=== PATIENT | female | born 1955 | race Caucasian/White ===

== ENCOUNTER 2018-12-03 16:47 | Observation (INO) ==
[2018-12-03] MEDS ORDERED: Isovue-370 500 ML BOTTLE IVP ONE (17:30)
[2018-12-03] MEDS ORDERED: Ondansetron 4 MG/2 ML VIAL IVP ONE (17:30)
[2018-12-03] MEDS ORDERED: Metoclopramide 10 MG/2 ML VIAL IVP ONE (17:36)
--- NOTE | 2018-12-03 17:39 | Emergency Department Note ---
Disposition Clinical Impression: Facial droop, Arm weakness Disposition: Admitted As Inpatient Condition: Fair Referrals: Sarbjit Armenta MD [Primary Care Provider] - Forms: ED Satisfaction Letter Time of Disposition: 19:56 Neuro HPI - General Chief Complaint: ED Neuro Symptoms/Deficit Stated Complaint: Neuro Symptoms since 11/30 Time Seen by Provider: 12/03/18 17:18 Source: patient Mode of arrival: ambulatory Limitations: no limitations Nursing Notes Reviewed: Yes Vital Signs Reviewed: Yes - History of Present Illness HPI Narrative: 63 old female with history of heart failure, diabetes, hypertension, chronic kidney disease presents for evaluation of nausea vomiting headache as well as facial droop. Patient states symptom onsets are with a headache that occurred approximately week ago. Notes to be left-sided. States it does radiate around to the front. Patient states she does have a history of cervical stenosis. Patient feels that the headache is likely secondary to her stenosis. Reports some nausea no vomiting. Patient also notes some tingling and weakness in her left arm. She noted facial droop that occurred last Monday. Patient denies any chest pain. Patient denies any abdominal pain. No fevers. Patient denies any vision changes. States the headache is worse with light and sounds. - Related Data Home Medications: Home Medications Medication Instructions Recorded Confirmed Atenolol [Tenormin] 25 mg PO DAILY 08/04/15 08/07/17 Atorvastatin [Lipitor] 40 mg PO DAILY 08/04/15 08/07/17 Furosemide [Lasix] 40 mg PO DAILY 08/04/15 08/07/17 Insulin DETEMIR [Levemir] 80 unit SQ BID 08/04/15 08/07/17 Isosorbide MONOnitrate (24 HR) 60 mg PO DAILY 08/04/15 08/07/17 [Imdur] Linagliptin [Tradjenta] 5 mg PO DAILY 08/04/15 08/07/17 Losartan [Cozaar] 100 mg PO DAILY 08/04/15 08/07/17 Metolazone [Zaroxolyn] 5 mg PO DAILY 08/04/15 08/07/17 Spironolactone [Aldactone] 100 mg PO DAILY 08/04/15 08/07/17 Tiotropium [Spiriva] 1 cap IH 0700 08/04/15 08/07/17 Insulin ASPART [NovoLOG] 20 unit SQ TIDWM 08/03/16 08/07/17 Albuterol Neb [Proventil Neb] 2.5 mg IH TID PRN 04/06/17 08/07/17 Albuterol Sulfate [Albuterol 2 puff IH Q6HR PRN 04/06/17 08/07/17 Inhaler] Allopurinol [Zyloprim] 300 mg PO DAILY 04/06/17 08/07/17 Gabapentin [Neurontin] 800 mg PO TID 04/06/17 08/07/17 Magnesium Oxide [Magnesium] 400 mg PO DAILY 04/06/17 08/07/17 [place]-3/Dha/Epa/Fish Oil [Fish Oil 1,000 mg PO DAILY 04/06/17 08/07/17 1,000 mg Softgel] Previous Rx's Medication Instructions Recorded Ascorbic Acid [Vitamin C] 1 tab PO DAILY #30 tablet 08/08/17 Cholecalciferol (Vitamin D3) 1 cap PO QWEEK #16 capsule 08/08/17 [Vitamin D] Ferrous Sulfate [Iron] 1 tab PO DAILY #30 tablet 08/08/17 Folic Acid 1 tab PO DAILY #30 tablet 08/08/17 Allergies/Adverse Reactions: Allergies Allergy/AdvReac Type Severity Reaction Status Date / Time aspirin Allergy Swelling Verified 12/03/18 17:06 of Lip/Tongue/Throat ibuprofen Allergy Swelling Verified 12/03/18 17:06 of Lip/Tongue/Throat naproxen [From Naprosyn] Allergy Swelling Verified 12/03/18 17:06 of Lip/Tongue/Throat All systems ED: reviewed and negative except as stated. Constitutional: Denies: fever Cardiovascular: Denies: chest pain Respiratory: Denies: cough Gastrointestinal: Reports: nausea, vomiting. Denies: abdominal pain Neurological: Reports: headache, weakness Past Medical History - Past Medical History Source: patient Medical history: Reports: arthritis, CHF, COPD, diabetes, hyperlipidemia, hypertension, renal disease, other Surgical history: Reports: non-contributory, other Psychiatric history: Reports: anxiety, depression - Social History Smoking Status: Former smoker Smokeless Tobacco Status: No Alcohol use: Reports: none Drug use: Reports: none Physical Exam - General Limitations: no limitations General appearance: alert, in no apparent distress - Head Head exam: atraumatic, normocephalic, normal inspection - Eye Eye exam: Present: normal appearance, PERRL, EOMI - ENT ENT exam: normal exam, normal oropharynx, other (Left-sided facial droop without forehead sparing) - Neck Neck exam: Present: normal inspection - Chest Chest inspection: Present: normal inspection - Respiratory Respiratory exam: Present: normal lung sounds bilaterally. Absent: respiratory distress - Cardiovascular Cardiovascular exam: Present: regular rate, normal rhythm. Absent: systolic murmur - Abdominal Exam Abdominal exam: Present: soft, Non-Tender - Extremities Exam Extremities exam: Present: normal inspection. Absent: pedal edema - Back Exam Back exam: Present: normal inspection - Neurological Exam Neurological exam: Present: alert, oriented X3 - Expanded Neurological Exam Patient oriented to: Present: person, place, time Speech: Present: fluid speech Cranial nerves: EOM function (II, III, IV, ): Normal, facial sensation (V): Normal, facial palsy (VII): Abnormal Left, spinal accessory function (XI): Normal, tongue deviation (XII): Normal Cerebellar function: finger to nose: Normal Motor strength - LUE: 4/5 Motor strength - RUE: 5/5 Motor strength - LLE: 4/5 Motor strength - RLE: 5/5 Coma Scale Eye Opening: Spontaneous Coma Scale Motor Response: Obeys Commands Coma Scale Verbal Response: Oriented Coma Scale Total: 15 Course - Reevaluation(s) Reevaluation #1: Patient seen and examined. Patient currently exam is unchanged. Patient's updated on plan of care. Patient will be admitted for TIA versus CVA workup. Time: 19:55 Vital Signs Temperature 98.3 F 12/03/18 17:06 Pulse Rate 77 12/03/18 17:06 Respiratory Rate 18 12/03/18 17:06 Blood Pressure 121/70 12/03/18 17:06 O2 Sat by Pulse Oximetry 93 12/03/18 17:06 Temperature 98.3 F 12/03/18 17:06 Pulse Rate 77 12/03/18 17:06 Respiratory Rate 18 12/03/18 17:06 Blood Pressure 121/70 12/03/18 17:06 O2 Sat by Pulse Oximetry 93 12/03/18 17:06 Oxygen Delivery Oxygen Delivery Room Air Neuro Symptoms/Deficit - MDM Narrative Medical decision making narrative: Patient presented initially for neuro symptoms. Patient is not a stroke alert given her last known well time of onset. States that he was having a headache this started a week ago. Patient also was having left sided facial droop that she noted over the past couple days. Patient did not seek medical care at that time. On exam the patient did initially have symptoms consistent more with [place]'s however the patient does have noticeable left sided extremity weakness. No history of CVA in the past. Patient does have several risk factors for CVA. Patient had a cardio pulmonary screening evaluation given her history. Chest x- ray unremarkable. Patient does have AK based on prior lab values. At this point the patient will be admitted for CVA workup. CT angiogram of the head and neck showed no acute abnormalities. Patient was allergic to aspirin so the patient did receive Plavix. - Lab Data Lab results reviewed: Yes I reviewed the patient's lab results. Result diagrams: 12/03/18 17:52 12/03/18 17:52 Lab Results 12/03/18 12/03/18 12/03/18 Range/Units 17:52 17:52 17:52 WBC 11.6 H (4.3-11.1) K/mcL RBC 4.94 (3.82-4.97) M/mcL Hgb 12.4 (11.5-15.4) g/dL Hct 40.1 (35.3-44.9) % MCV 81.2 L (83.0-100.0) fL MCH 25.1 L (28.0-33.3) pg MCHC 30.9 L (31.6-35.5) g/dL RDW 16.3 H (11.5-14.5) % Plt Count 258 (140-400) K/mcL MPV 9.6 (9.4-12.4) fL PT 11.9 (9.4-12.1) Seconds INR 1.1 Sodium 139 (136-145) mEq/L Potassium 3.8 (3.5-5.1) mEq/L Chloride 102 (98-107) mEq/L Carbon Dioxide 28 (23-29) mEq/L BUN 29 H (8-23) mg/dL Creatinine 1.38 H (0.60-1.20) mg/dL Est GFR ( Amer) 47 L (> 60) Est GFR (Non-Af Amer) 38 L (> 60) BUN/Creatinine Ratio 21 (6-26) Glucose 228 H (70-105) mg/dL Calculated Osmolality 301 H (280-300) Calcium 9.0 (8.6-10.3) mg/dL Troponin I < 0.03 (< 0.04) ng/mL - Radiology Data Radiology results reviewed: Yes I reviewed the patient's radiology results. Head CTA 12/03/18 17:30 IMPRESSION: No CT evidence of an acute infarct. No flow limiting stenosis or branch occlusion detected within the head or neck. Left PCOM infundibulum versus aneurysm. D/ / Saulo Hemphill MD / Saulo Hemphill MD Interpreting Provider: Saulo Hemphill MD Neck CTA 12/03/18 17:32 IMPRESSION: No CT evidence of an acute infarct. No flow limiting stenosis or branch occlusion detected within the head or neck. Left PCOM infundibulum versus aneurysm. D/ / Saulo Hemphill MD / Saulo Hemphill MD Interpreting Provider: Saulo Hemphill MD Chest X-Ray 12/03/18 17:34 IMPRESSION: No evidence of acute process in the chest. D/ / Steven Cruz / Steven Cruz Interpreting Provider: Steven Cruz - EKG Data EKG attestation: Yes I reviewed and interpreted this EKG. EKG shows normal: sinus rhythm Rate: normal Rhythm: NSR [place]/QRS: normal T wave inversions noted in: v1 Interpretation: no acute changes, nonspecific ST-T wave changes NIH Stroke Scale - Level of Consciousness LOC: Alert - LOC Questions LOC Questions: Answers both correctly - LOC Commands LOC Commands: Performs both correctly - Best Gaze Best Gaze: Normal - Visual Visual: No visual loss - Facial Palsy Facial Palsy: Complete absence of movement in upper and lower face - Motor Arms Motor Arm-Left: No drift for 10 seconds Motor Arm-Right: No drift for 10 seconds - Motor Legs Motor Leg-Left: No drift for 5 seconds Motor Leg-Right: No drift for 5 seconds - Limb Ataxia Limb Ataxia: Absent of affected limb too weak to perform exam - Sensory Sensory: Normal - Best Language Best Language: No aphasia - Dysarthria Dysarthria: Normal - Extinction and Inattention Extinction and Inattention: Normal - NIHSS Total Score NIHSS Total Score: 3 TPA Checklist - LKW: 3-4.5 hrs Add. Warnings/Precautions Patient/family understanding: The patient/family members have been counseled and understood the risk, benefit, and alternatives of treatment. Mounika - Mounika Situation: Demographics Background: Presenting Complaint Assessment: Vital Signs, Course and respsone to treatment, Patient/Family Expectation Recommendation: Barrier(s) to disposition, Recommendation based on pending studies, treatments, or consults Mounika Report Given to: Dr. Jayden Ribera Repor Time: 20:10
[2018-12-03 18:09] LABS: INR 1.1; Prothrombin Time 11.9 Seconds (9.4-12.1)
[2018-12-03 18:17] LABS: Hematocrit 40.1 % (35.3-44.9); Hemoglobin 12.4 g/dL (11.5-15.4); Mean Corpuscular HGB Conc 30.9 g/dL (31.6-35.5); Mean Corpuscular Hemoglobin 25.1 pg (28.0-33.3); Mean Corpuscular Volume 81.2 fL (83.0-100.0); Mean Platelet Volume 9.6 fL (9.4-12.4); Platelet Count 258 K/mcL (140-400); Red Blood Count 4.94 M/mcL (3.82-4.97); Red Cell Distribution Width 16.3 % (11.5-14.5)
[2018-12-03 19:16] LABS: BUN/Creatinine Ratio 21 (6-26); Blood Urea Nitrogen 29 mg/dL (8-23); Carbon Dioxide 28 mEq/L (23-29); Chloride 102 mEq/L (98-107); Glucose 228 mg/dL (70-105); Osmolality,Calculated 301 (280-300); Potassium 3.8 mEq/L (3.5-5.1); Sodium 139 mEq/L (136-145); eGFR For Non-African Americans 38 (> 60)
[2018-12-03 19:18] LABS: Troponin I < 0.03 ng/mL (< 0.04)
--- NOTE | 2018-12-03 20:05 | Emergency Department Note ---
Disposition Clinical Impression: Facial droop, Arm weakness Disposition: Admitted As Inpatient Condition: Fair Referrals: Sarbjit Armenta MD [Primary Care Provider] - Forms: ED Satisfaction Letter General Adult HPI - General Chief complaint: ED Neuro Symptoms/Deficit Stated complaint: Neuro Symptoms since 11/30 Time Seen by Provider: 12/03/18 17:18 Source: patient Mode of arrival: ambulatory Limitations: no limitations - History of Present Illness Pain Scale: 9 - Related Data Home Medications Medication Instructions Recorded Confirmed Atenolol [Tenormin] 25 mg PO DAILY 08/04/15 08/07/17 Atorvastatin [Lipitor] 40 mg PO DAILY 08/04/15 08/07/17 Furosemide [Lasix] 40 mg PO DAILY 08/04/15 08/07/17 Insulin DETEMIR [Levemir] 80 unit SQ BID 08/04/15 08/07/17 Isosorbide MONOnitrate (24 HR) 60 mg PO DAILY 08/04/15 08/07/17 [Imdur] Linagliptin [Tradjenta] 5 mg PO DAILY 08/04/15 08/07/17 Losartan [Cozaar] 100 mg PO DAILY 08/04/15 08/07/17 Metolazone [Zaroxolyn] 5 mg PO DAILY 08/04/15 08/07/17 Spironolactone [Aldactone] 100 mg PO DAILY 08/04/15 08/07/17 Tiotropium [Spiriva] 1 cap IH 0700 08/04/15 08/07/17 Insulin ASPART [NovoLOG] 20 unit SQ TIDWM 08/03/16 08/07/17 Albuterol Neb [Proventil Neb] 2.5 mg IH TID PRN 04/06/17 08/07/17 Albuterol Sulfate [Albuterol 2 puff IH Q6HR PRN 04/06/17 08/07/17 Inhaler] Allopurinol [Zyloprim] 300 mg PO DAILY 04/06/17 08/07/17 Gabapentin [Neurontin] 800 mg PO TID 04/06/17 08/07/17 Magnesium Oxide [Magnesium] 400 mg PO DAILY 04/06/17 08/07/17 [place]-3/Dha/Epa/Fish Oil [Fish Oil 1,000 mg PO DAILY 04/06/17 08/07/17 1,000 mg Softgel] Previous Rx's Medication Instructions Recorded Ascorbic Acid [Vitamin C] 1 tab PO DAILY #30 tablet 08/08/17 Cholecalciferol (Vitamin D3) 1 cap PO QWEEK #16 capsule 08/08/17 [Vitamin D] Ferrous Sulfate [Iron] 1 tab PO DAILY #30 tablet 08/08/17 Folic Acid 1 tab PO DAILY #30 tablet 08/08/17 Allergies Allergy/AdvReac Type Severity Reaction Status Date / Time aspirin Allergy Swelling Verified 12/03/18 17:06 of Lip/Tongue/Throat ibuprofen Allergy Swelling Verified 12/03/18 17:06 of Lip/Tongue/Throat naproxen [From Naprosyn] Allergy Swelling Verified 12/03/18 17:06 of Lip/Tongue/Throat Constitutional: Denies: fever Cardiovascular: Denies: chest pain Respiratory: Denies: cough Gastrointestinal: Reports: nausea, vomiting. Denies: abdominal pain Neurological: Reports: headache, weakness Past Medical History - Past Medical History Medical history: Reports: arthritis, CHF, COPD, diabetes, hyperlipidemia, hypertension, renal disease, other Surgical history: Reports: non-contributory, other Psychiatric history: Reports: anxiety, depression - Social History Smoking Status: Former smoker Smokeless Tobacco Status: No Alcohol use: Reports: none Drug use: Reports: none Physical Exam - General Limitations: no limitations General appearance: alert, in no apparent distress Course Vital Signs Temperature 98.3 F 12/03/18 17:06 Pulse Rate 77 12/03/18 17:06 Respiratory Rate 18 12/03/18 17:06 Blood Pressure 121/70 12/03/18 17:06 O2 Sat by Pulse Oximetry 93 12/03/18 17:06 Temperature 98.3 F 12/03/18 17:06 Pulse Rate 77 12/03/18 17:06 Respiratory Rate 18 12/03/18 17:06 Blood Pressure 121/70 12/03/18 17:06 O2 Sat by Pulse Oximetry 93 12/03/18 17:06 Oxygen Delivery Oxygen Delivery Room Air Medical Decision Making - Lab Data Result diagrams: 12/03/18 17:52 12/03/18 17:52 Lab Results 12/03/18 12/03/18 12/03/18 Range/Units 17:52 17:52 17:52 WBC 11.6 H (4.3-11.1) K/mcL RBC 4.94 (3.82-4.97) M/mcL Hgb 12.4 (11.5-15.4) g/dL Hct 40.1 (35.3-44.9) % MCV 81.2 L (83.0-100.0) fL MCH 25.1 L (28.0-33.3) pg MCHC 30.9 L (31.6-35.5) g/dL RDW 16.3 H (11.5-14.5) % Plt Count 258 (140-400) K/mcL MPV 9.6 (9.4-12.4) fL PT 11.9 (9.4-12.1) Seconds INR 1.1 Sodium 139 (136-145) mEq/L Potassium 3.8 (3.5-5.1) mEq/L Chloride 102 (98-107) mEq/L Carbon Dioxide 28 (23-29) mEq/L BUN 29 H (8-23) mg/dL Creatinine 1.38 H (0.60-1.20) mg/dL Est GFR ( Amer) 47 L (> 60) Est GFR (Non-Af Amer) 38 L (> 60) BUN/Creatinine Ratio 21 (6-26) Glucose 228 H (70-105) mg/dL Calculated Osmolality 301 H (280-300) Calcium 9.0 (8.6-10.3) mg/dL Troponin I < 0.03 (< 0.04) ng/mL Attestation Statement - Attestation Attestation: I examined this patient and my medical decision-making was reviewed with the Resident Physician. I agree with the documented findings, disposition and treatment plan as described except to the extent set forth below. 63 year old female presents to the ED with complaints of left sided facial weakness and asociated with left upper and lower extremity. PAtinet otherwise shows decreased cotton presser strength in upper extrimity and decreased strength against gravity for lower extremity which has been getting incresing wores since 11/30. 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 Patient CTA head and neck are otherwise neg at this time. We candy admit to medicine for CVA workup.
[2018-12-03] MEDS ORDERED: Albuterol 2.5 MG/3 ML NEBULIZER IH PRN (21:19)
[2018-12-03] MEDS ORDERED: Ondansetron 4 MG/2 ML VIAL IVP PRN (21:20)
[2018-12-03] MEDS ORDERED: Dextrose Gel 15 GM/37.5 ML TUBE PO PRN ×2 (21:24)
[2018-12-03] MEDS ORDERED: *HR* Dextrose 50 % in Water (Syg) 50 ML SYRINGE IVP PRN (21:24)
[2018-12-03] MEDS: Insulin LISPRO 300 UNITS/3 ML VIAL SQ SCH (22:53)
[2018-12-03] MEDS: Gabapentin 400 MG CAPSULE PO SCH (23:07)
[2018-12-03] MEDS: *HR* Heparin 5,000 UNIT/ML VIAL SQ SCH (23:07)
[2018-12-03] MEDS: Ringers Solution, Lactated 1,000 ML IVC SCH (23:07)
--- NOTE | 2018-12-04 00:19 | Internal Med History&Physical ---
Date of Encounter: 12/03/18 Time of Encounter: 19:00 Internal Medicine - H&P: HPI Chief complaint: headache Admitted From: Home Plans for Post Hospital Care: Home History of present illness: Patient seen on 12/03/2018 Cortney Cassidy is a 63 year old obese woman who reports having hypertension, diabetes, heart failure and chronic kidney disease who presents with the complaint of headache and left facial drooping that has been present since last . She says she initially thought it had to do with her cervical radiculopathy/myelopathy however given its persistence and insistence by family members, she decided to come in for evaluation. She was seen clinically and hemodynamically stable and her clinical examination appeared more consistent with [place] palsy however she was also seen to have left upper and lower extremity weakness thereby giving the concern for CVA. She had head and neck CTA done with the only abnormality detected being a left PCOM infundibulum versus aneurysm. She is admitted for further evaluation. Vitals: Reviewed General: Obese white woman sitting up in bed in NAD Skin: Warm and dry. HEENT: No skin creasing on left forehead. Incomplete closure of left eyelid. No palpebral elevation on the left. Neck: No lymphadenopathy. No JVD. No carotid bruits. No palpable thyroid. Chest: Normal thoracic expansion. Normal breath sounds. Clear to auscultation. Heart: Normal S1 & S2; rhythmic. No rubs or murmurs. Abdomen: Non-distended, soft and non-tender to palpation. No peritoneal reaction. Extremities: No clubbing, cyanosis or edema. No calf tenderness. Normal distal pulses. Neurological: Awake, alert and oriented to person, place and time. 4/5 left arm/leg weakness. 5/5 right sided strength. Psych: Affect appropriate. 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 The confounding factor is the presence of concomitant left sided weakness. If this is indeed [place] palsy, she has been symptomatic for the past 5 to 6 days and at this point is out of the window of any benefit of steroids and/or antiviral therapy. Left sided weakness: She does not appear to have prior knowledge of having weakness on this side. She does relate having been evaluated a year ago for a stroke and being placed on clopidogrel given her penicillin allergy. This could possibly be the cause of her left sided weakness and now just being seen as a compounding factor. In any case for the sake of certainty, will get a brain MRI for further evaluation of this and also the anomaly seen on CT. Will continue daily antiplatelet therapy. Neurology consultation requested. Diabetes: Check A1C and lipid profile. Place on insulin sliding scale. COPD: On daily tiotropium and albuterol prn. EMA: Will provide fluid resuscitation and recheck BMP. Past Med Surg Social Fam HX - Past Medical History Medical history: arthritis, CHF, COPD, diabetes, hyperlipidemia, hypertension, renal disease, other Additional medical history: Gout. Renal Failure Stage III. Cervical Spine Stenosis. Ovarian/Uterine Cancer with metastasis Psychiatric history: anxiety, depression - Past Surgical History Surgical History: non-contributory, other Additional surgical history: oral sx, jaw sx. exploratory abdominal surgery - Social History Smoking Status: Former smoker Smokeless Tobacco Status: No Alcohol use: none Drug use: none Internal Medicine - H&P: Meds Atenolol [Tenormin] 25 mg PO DAILY 08/04/15 [History] Atorvastatin [Lipitor] 40 mg PO DAILY 08/04/15 [History] Furosemide [Lasix] 40 mg PO DAILY 08/04/15 [History] Isosorbide MONOnitrate (24 HR) [Imdur] 60 mg PO DAILY 08/04/15 [History] Linagliptin [Tradjenta] 5 mg PO DAILY 08/04/15 [History] Losartan [Cozaar] 100 mg PO DAILY 08/04/15 [History] Metolazone [Zaroxolyn] 5 mg PO DAILY 08/04/15 [History] Spironolactone [Aldactone] 100 mg PO DAILY 08/04/15 [History] Tiotropium [Spiriva] 1 cap IH 0700 08/04/15 [History] Insulin ASPART [NovoLOG] 40 unit SQ BID 08/03/16 [History] Albuterol Neb [Proventil Neb] 2.5 mg IH TID PRN 04/06/17 [History] Albuterol Sulfate [Albuterol Inhaler] 2 puff IH Q6HR PRN 04/06/17 [History] Allopurinol [Zyloprim] 300 mg PO DAILY 04/06/17 [History] Gabapentin [Neurontin] 800 mg PO TID 04/06/17 [History] [place]-3/Dha/Epa/Fish Oil [Fish Oil 1,000 mg Softgel] 1,000 mg PO DAILY 04/06/17 [History] Clopidogrel [Plavix] 75 mg PO DAILY 12/03/18 [History] Insulin Glargine,Hum.rec.anlog [Lantus Solostar] 75 units SQ BID 12/03/18 [ History] Allergy/AdvReac Type Severity Reaction Status Date / Time aspirin Allergy Swelling Verified 12/03/18 17:06 of Lip/Tongue/Throat ibuprofen Allergy Swelling Verified 12/03/18 17:06 of Lip/Tongue/Throat naproxen [From Naprosyn] Allergy Swelling Verified 12/03/18 17:06 of Lip/Tongue/Throat All Systems PM: A 10-system review of systems was performed and is negative for pertinent findings except as documented above in the HPI. Family history reviewed and found non-contributory. - Constitutional Vitals: Temp Pulse Resp BP Pulse Ox 98.3 F 73 17 109/61 91 12/03/18 22:51 12/03/18 22:51 12/03/18 22:51 12/03/18 22:51 12/03/18 22:51 Exam: . Internal Med - H&P Results - Labs CBC & Chem 7: 12/03/18 17:52 12/03/18 17:52 Labs: Short CBC 12/03/18 Range/Units 17:52 WBC 11.6 H (4.3-11.1) K/mcL Hgb 12.4 (11.5-15.4) g/dL Hct 40.1 (35.3-44.9) % Plt Count 258 (140-400) K/mcL BMP 12/03/18 17:52 Sodium 139 Potassium 3.8 Chloride 102 Carbon Dioxide 28 BUN 29 H Creatinine 1.38 H Glucose 228 H Calcium 9.0 Cardiac Enzymes 12/03/18 Range/Units 17:52 Troponin I < 0.03 (< 0.04) ng/mL - Impressions ITS Impressions Head CTA 12/03/18 17:30 IMPRESSION: No CT evidence of an acute infarct. No flow limiting stenosis or branch occlusion detected within the head or neck. Left PCOM infundibulum versus aneurysm. D/ / Dong H. Kanchan, MD / Saulo Hemphill MD Interpreting Provider: Saulo Hemphill MD Neck CTA 12/03/18 17:32 IMPRESSION: No CT evidence of an acute infarct. No flow limiting stenosis or branch occlusion detected within the head or neck. Left PCOM infundibulum versus aneurysm. D/ / Saulo Hemphill MD / Saulo Hemphill MD Interpreting Provider: Saulo Hemphill MD Chest X-Ray 12/03/18 17:34 IMPRESSION: No evidence of acute process in the chest. D/ / Steven Cruz / Steven Cruz Interpreting Provider: Steven Cruz - Time Spent With Patient Total time spent is greater than 50% in coordination of care (as documented) at patient's floor/unit and/or counseling patient: Greater than 35 minutes
[2018-12-04] MEDS: *HR* Heparin 5,000 UNIT/ML VIAL SQ SCH ×3 (06:35→21:50)
[2018-12-04] MEDS: Ringers Solution, Lactated 1,000 ML IVC SCH (06:35)
[2018-12-04 07:07] LABS: Basophils # 0.1 K/mcL (0.0-0.2); Basophils % 1.1 %; Eosinophils # 0.4 K/mcL (0.0-0.6); Hematocrit 35.6 % (35.3-44.9); Hemoglobin 11.4 g/dL (11.5-15.4); Immature Granulocytes % 0.6 % (0-4); Lymphocytes # 2.2 K/mcL (0.6-4.6); Lymphocytes % 17.4 %; Mean Corpuscular Hemoglobin 25.6 pg (28.0-33.3); Mean Corpuscular Volume 79.8 fL (83.0-100.0); Mean Platelet Volume 9.5 fL (9.4-12.4); Monocytes # 0.9 K/mcL (0.0-1.3); Monocytes % 6.9 %; Neutrophils # 8.8 K/mcL (1.6-8.9); Platelet Count 245 K/mcL (140-400); Red Blood Count 4.46 M/mcL (3.82-4.97); Red Cell Distribution Width 16.3 % (11.5-14.5)
[2018-12-04 07:26] LABS: BUN/Creatinine Ratio 28 (6-26); Blood Urea Nitrogen 31 mg/dL (8-23); Calcium 8.9 mg/dL (8.6-10.3); Carbon Dioxide 31 mEq/L (23-29); Chloride 99 mEq/L (98-107); Chol/HDL Ratio 2.9 (0-4.9); Cholesterol 106 mg/dL (< 200); Glucose 74 mg/dL (70-105); HDL Cholesterol 36 mg/dL (40-59); LDL Cholesterol,Calculated 38 mg/dL (0-99); Osmolality,Calculated 293 (280-300); Potassium 3.3 mEq/L (3.5-5.1); Sodium 139 mEq/L (136-145); Triglycerides 158 mg/dL (< 150); eGFR For Non-African Americans 50 (> 60)
[2018-12-04] MEDS: Tiotropium 18 MCG inhalation IH SCH (07:49)
[2018-12-04] MEDS ORDERED: NON-FORMULARY MEDICATION 1 EACH EACH (Omega-3/Dha/Epa/Fish Oil [Fish Oil 1,000 Mg Softgel] PO SCH (09:00)
[2018-12-04 09:28] LABS: Estimated Average Glucose 174 mg/dl; Hemoglobin A1C 7.7 %
--- NOTE | 2018-12-04 09:56 | Electrocardiograph Report ---
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
[2018-12-04] MEDS: Gabapentin 400 MG CAPSULE PO SCH ×3 (10:15→21:50)
[2018-12-04] MEDS: Furosemide 40 MG TABLET PO SCH (10:18)
[2018-12-04] MEDS: Insulin LISPRO 300 UNITS/3 ML VIAL SQ SCH ×4 (10:20→21:50)
--- NOTE | 2018-12-04 10:22 | Neurology - Consult Note ---
<Marc Escobar - Last Filed: 12/04/18 13:39> Date of Encounter: 12/04/18 Time of Encounter: 10:08 Assessment and Plan (1) Facial droop Current Visit: Yes Status: Acute Presenting with s/sx of increase lacrimation of left eye, left Ptosis, left mouth droop and parasthesias of face and tongue. She is also reporting some left arm and leg weakness and parasthesias. CTA head/neck- no evidence of acute infarct, no flow limiting stenosis or branch occlusion detected within the head or neck. TTE is grossly normal Neuro exam reveals flattening of the left nasolabial folds, smoothing of the wrinkles on the forehead, left facial droop, left eye ptosis and slurred speech. She does have some left-sided give way weakness, otherwise no focal weakness identified. 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 We will continue with CVA rule out as ordered per the primary team. Continue with plan as follows below PLAN: Agree with pursuing stroke workup to rule out an acute neurovascular event. MRI brain pending TTE pending On antiplatelet therapy Plavix at home, agree with continuing Agree with continuing home dose of Lipitor Continue neurological assessment per protocol Further treatment pending results neuro imaging. Continue medical and supportive care (2) Arm weakness Current Visit: Yes Status: Acute History of Present Illness Chief complaint: LEFT FACIAL DROOP, LT ARM AND LEG WK AND LT PARASTHESIAS HPI: Ms. Cassidy is a 63 year old female with a PMH of arthritis, CHF, COPD, DM, HLD, HTN, and Monday, depression and CKD III. 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 She also has C5-C6 moderate narrowing of the neural foramina on the left due to uncinate spondylosis. Central canal patent. She presents to [facility] with a CC of increased lacrimation, left facial droop, left eye ptosis, paresthesias of left face, left arm, left leg and left arm and leg weakness. She reports the symptoms began early Monday shortly after midnight; inciting factors include a sharp posterior headache radiating into the left christianity. Initially she thought her symptoms were R/t her cervical spine problems or that it may have been Lawrence's palsy so she did not seek immediate evaluation. However, due to persistent symptoms and eventually experiencing involvement of the left side including numbness she decided to seek care in the ED for further evaluation. Today during my interview she is endorsing dysphagia, slurred speech, persistent headache which is now located in the left christianity and photophobia. She is denying any visual changes, ataxia, chest pain, palpitations or shortness of breath. Should be noted that she was not a stroke alert due to time of symptom onset versus time of presentation to the ED for evaluation. In the ED a CT angiogram of the head and neck was completed with the findings of left PCOM infundibulum vs aneurysm. Mr. panel revealed CKD 3 around patient's baseline, otherwise no acute abnormalities. CBC is unremarkable. Past Med Surg Social Fam HX - Past Medical History Medical history: arthritis, CHF, COPD, diabetes, hyperlipidemia, hypertension, renal disease, other Additional medical history: Gout. Renal Failure Stage III. Cervical Spine Stenosis. Ovarian/Uterine Cancer with metastasis Psychiatric history: anxiety, depression - Past Surgical History Surgical History: non-contributory, other Additional surgical history: oral sx, jaw sx. exploratory abdominal surgery - Social History Smoking Status: Former smoker Smokeless Tobacco Status: No Alcohol use: none Drug use: none - Additional Family History Additional family history: Reviewed and found to be noncontributory Medications and Allergies Linagliptin [Tradjenta] 5 mg PO DAILY 08/04/15 [History] Spironolactone [Aldactone] 100 mg PO DAILY 08/04/15 [History] Insulin ASPART [NovoLOG] 40 unit SQ BID 08/03/16 [History] Albuterol Neb [Proventil Neb] 2.5 mg IH TID PRN 04/06/17 [History] Albuterol Sulfate [Albuterol Inhaler] 2 puff IH Q6HR PRN 04/06/17 [History] Allopurinol [Zyloprim] 300 mg PO DAILY 04/06/17 [History] Gabapentin [Neurontin] 800 mg PO TID 04/06/17 [History] Knott-3/Dha/Epa/Fish Oil [Fish Oil 1,000 mg Softgel] 1,000 mg PO DAILY 04/06/17 [History] Clopidogrel [Plavix] 75 mg PO DAILY 12/03/18 [History] Insulin Glargine,Hum.rec.anlog [Lantus Solostar] 75 units SQ BID 12/03/18 [History] Atenolol [Tenormin] 25 mg PO DAILY 12/04/18 [History] Atorvastatin [Lipitor] 40 mg PO HS 12/04/18 [History] Furosemide [Lasix] 40 mg PO DAILY 12/04/18 [History] Isosorbide MONOnitrate (24 HR) [Imdur] 60 mg PO DAILY 12/04/18 [History] Lidocaine Patch [Lidoderm 5% patch] 1 patch TD DAILY 12/04/18 [History] Losartan Potassium 100 mg PO DAILY 12/04/18 [History] Tiotropium [Spiriva] 18 mcg IH 0700 12/04/18 [History] metOLazone [Zaroxolyn] 5 mg PO DAILY 12/04/18 [History] Allergy/AdvReac Type Severity Reaction Status Date / Time aspirin Allergy Swelling Verified 12/04/18 17:39 of Lip/Tongue/Throat ibuprofen Allergy Swelling Verified 12/04/18 17:39 of Lip/Tongue/Throat naproxen [From Naprosyn] Allergy Swelling Verified 12/04/18 17:39 of Lip/Tongue/Throat All Systems: The remainder of the systems were reviewed and are negative Review of Systems: REVIEW OF SYSTEMS GENERAL: Negative for any nausea, vomiting, fevers, chills, or weight loss, fatigue mobility NEUROLOGIC: Negative for any visual changes POSITIVE-left eye ptosis, left facial droop, left facial paresthesias, left arm and leg paresthesias and weakness, dysphagia, paresthesias of the tongue, HEENT: Negative for any head trauma, neck trauma, neck stiffness POSITIVE-photophobia of left eye, increased lacrimation CARDIAC: Negative for any chest pain, dyspnea on exertion, HTN, VTE, claudication, paroxysmal nocturnal dyspnea, peripheral edema. MUSCULOSKELETAL: Positive-loss of strength to left arm and leg Physical Examination - Vital Signs Vital Signs: Initial Vital Signs Temp Pulse Resp BP Pulse Ox 98.3 F 77 18 121/70 93 12/03/18 17:06 12/03/18 17:06 12/03/18 17:06 12/03/18 17:06 12/03/18 17:06 - Exam Exam: Examination: General Examination: *CONSTITUTIONAL: Alert and oriented x3, no acute distress *GENERAL APPEARANCE OF PATIENT elderly obese female, appears stated age, no acute distress *EYES: pupils equal, round, reactive to light and accommodation, conjunctiva clear *CARDIOVASCULAR RRR, S1, S2, no mumurs, rubs, or gallops, no peripheral edema, distal temperature normal, dorsalis pedis pulses normal. See vital signs Musculoskeletal: *GAIT AND STATION sitting upright at edge of bed unassisted without truncal ataxia *ASSESSMENT OF MUSCLE STRENGTH IN THE UPPER AND LOWER EXTREMITIES left deltoid, bicep, tricep, foot roentgenologist strength, hip flexors ,anterior tibialis, dorsoflexion of the foot 4/5; right deltoid, bicep, tricep, foot roentgenologist strength, hip flexors, anterior tibialis, dorsiflexion of the foot 5/5 *MUSCLE TONE IN THE UPPER AND LOWER EXTREMITIES normal. No abnormal movements, fasciculations or atrophy identified. Neurological: *ORIENTATION to person, situation, time and place *RECURRENT AND REMOTE MEMORY intact *ATTENTION AND CONCENTRATION are normal *LANGUAGE FUNCTION no significant aphasia. Having mild slurred speech *FUND OF KNOWLEDGE aware of current events, past history, vocabulary *MENTAL attention span and concentration normal. *CN II optic fundi were normal, no papilledema noted. *CN III,IV, PERRLA extraocular eye movements were full, no nystagmus. Lt eye PTOSIS and increased lacrimation *CN V decreased innervation with left facial asymmetry *CN VII abnormal facial movement on left side with decreased innervation of left mouth, decreased nasolabial folds, and flattening of wrinkles of lt forehead *CN VIII shows no significant hearing loss on exam *CN IX,,X palate elevated symmetrically *CN XI normal strength in the sternocleidomastoid muscles, symmetrical shoulder shrugging. *CN XII leftward deviation of tongue, normal strength and movement however *SENSORY EXAMINATION diminished sensation of left face, left arm and left leg when compared to right *REFLEXES: deep tendon reflexes were normal and symmetrical , grade 1/4 diffusely, no pathological reflexes were noted. *CEREBELLAR TESTING normal finger to nose, heel/knee/vuong *PAIN LEVEL 3/10 headache, left-sided headache located to left christianity without palpable tenderness Results - Laboratory Findings CBC and BMP: 12/04/18 06:55 12/04/18 06:55 Abnormal lab findings: Abnormal lab results WBC 12.4 K/mcL (4.3-11.1) H 12/04/18 06:55 Hgb 11.4 g/dL (11.5-15.4) L 12/04/18 06:55 MCV 79.8 fL (83.0-100.0) L 12/04/18 06:55 MCH 25.6 pg (28.0-33.3) L 12/04/18 06:55 RDW 16.3 % (11.5-14.5) H 12/04/18 06:55 Potassium 3.3 mEq/L (3.5-5.1) L 12/04/18 06:55 Carbon Dioxide 31 mEq/L (23-29) H 12/04/18 06:55 BUN 31 mg/dL (8-23) H 12/04/18 06:55 Est GFR (Non-Af Amer) 50 (> 60) L 12/04/18 06:55 BUN/Creatinine Ratio 28 (6-26) H 12/04/18 06:55 POC Glucose 169 mg/dL (70-99) H 12/03/18 23:11 Hemoglobin A1c 7.7 % (-5.6) H 12/04/18 06:55 Triglycerides 158 mg/dL (< 150) H 12/04/18 06:55 VLDL Cholesterol, Calc 32 mg/dL (< 31) H 12/04/18 06:55 HDL Cholesterol 36 mg/dL (40-59) L 12/04/18 06:55 - Diagnostic Findings Additional findings: CT/CT angio head IMPRESSION: No CT evidence of an acute infarct. No flow limiting stenosis or branch occlusion detected within the head or neck. Left PCOM infundibulum versus aneurysm. Consult Discharge Plan - Plan Referrals: Sarbjit Armenta MD [Primary Care Provider] - <Will Pendleton - Last Filed: 12/04/18 18:16> Date of Encounter: 12/04/18 Assessment and Plan (1) Facial droop Current Visit: Yes Status: Acute I have personally performed a [id number] assessment of the patient and have reviewed the PA/TRACK LAYING MACHINE OPERATOR note. 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 MRI scan of the brain is still pending at this time. We will continue with stroke protocol orders for now. I do not believe that the abnormality identified in the left posterior communicating artery is clinically significant at this time. We can follow this on an outpatient basis. Further recommendations will be made pending the MRI scan of the brain. Consider a short course of acyclovir as well as a tapering dose of prednisone. I will reevaluate her tomorrow. (2) Arm weakness Current Visit: Yes Status: Acute History of Present Illness HPI: I have personally performed a [id number] assessment of the patient and have reviewed the PA/TRACK LAYING MACHINE OPERATOR note. My impressions are as follows: Ms. Cassidy is a 63 year old female seen for neurologic consultation secondary to left facial weakness associated with left occipital nuchal headache. The patient was seen and examined independently in the case was discussed with the METAL NUMERICAL CONTROL PROGRAMMER. I agree with his assessment of the history of present illness as stated above. I did review the CTA scans of the brain and neck. The CTA of the neck was negative, the CTA of the brain revealed a 2.6 mm aneurysm versus infundibulum in the left posterior communicating artery. This however is a red norris and has no bearing on the reason for admission. MRI scan of the brain is still pending. All Systems: The remainder of the systems were reviewed and are negative Review of Systems: The balance of the systems review is negative. Physical Examination - Vital Signs Vital Signs: Initial Vital Signs Temp Pulse Resp BP Pulse Ox 98.3 F 77 18 121/70 93 12/03/18 17:06 12/03/18 17:06 12/03/18 17:06 12/03/18 17:06 12/03/18 17:06 - Exam Exam: I have personally performed a [id number] assessment of the patient and have reviewed the PA/TRACK LAYING MACHINE OPERATOR note. My impressions are as follows: Performed and independent complete neurologic examination of this patient. The patient does have evidence of peripheral facial nerve palsy on the left for weakness of the orbicularis oculi in all the muscles of facial expression on the left. She does have increased lacrimation however do not identify ptosis. She does have normal sensation of the left side of the face. Otherwise, I agree with the neurologic examination is documented above by the METAL NUMERICAL CONTROL PROGRAMMER. Results - Laboratory Findings CBC and BMP: 12/04/18 06:55 12/04/18 06:55 Abnormal lab findings: Abnormal lab results WBC 12.4 K/mcL (4.3-11.1) H 12/04/18 06:55 Hgb 11.4 g/dL (11.5-15.4) L 12/04/18 06:55 MCV 79.8 fL (83.0-100.0) L 12/04/18 06:55 MCH 25.6 pg (28.0-33.3) L 12/04/18 06:55 RDW 16.3 % (11.5-14.5) H 12/04/18 06:55 Potassium 3.3 mEq/L (3.5-5.1) L 12/04/18 06:55 Carbon Dioxide 31 mEq/L (23-29) H 12/04/18 06:55 BUN 31 mg/dL (8-23) H 12/04/18 06:55 Est GFR (Non-Af Amer) 50 (> 60) L 12/04/18 06:55 BUN/Creatinine Ratio 28 (6-26) H 12/04/18 06:55 POC Glucose 134 mg/dL (70-99) H 12/04/18 11:55 Hemoglobin A1c 7.7 % (-5.6) H 12/04/18 06:55 Triglycerides 158 mg/dL (< 150) H 12/04/18 06:55 VLDL Cholesterol, Calc 32 mg/dL (< 31) H 12/04/18 06:55 HDL Cholesterol 36 mg/dL (40-59) L 12/04/18 06:55
[2018-12-04] MEDS: Isosorbide MONOnitrate (24 HR) 60 MG TAB.ER.24H PO SCH (10:23)
--- NOTE | 2018-12-04 15:34 | Internal Med Progress Note ---
Hospitalist Progress Note - Encounter Date of Encounter: 12/04/18 Time of Encounter: 09:00 - Subjective Interval History: Patient is still has left-sided facial drop, cannot close left eyes. Patient also complaining of left arm weakness with occasional drop objectives from left hand. Vitals are stable. - Exam Vitals: Temp Pulse Resp BP Pulse Ox 98.0 F 66 12 105/64 93 12/04/18 11:58 12/04/18 11:58 12/04/18 11:58 12/04/18 11:58 12/04/18 11:58 Exam: Pt is AAO x 3, in NAD HEENT: NC/AT, PERRL Neck: Supple, no JVD, no LAD Lungs: CTA b/l Heart: S1S2, RRR Abd: Soft, nontender, BS present Ext: ROM wnl, no pedal edema Neuro: Left facial drop, cannot close left eyes properly, left hand motor 4/5. - Assessment and Plan (1) Arm weakness Current Visit: Yes Status: Acute Assessment and Plan: Likely due to C-spine stenosis. However, will order MRI to rule out CVS. - Continue antiplatelet and statin (2) Facial droop Current Visit: Yes Status: Acute Assessment and Plan: Patient cannot close eyes. 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 Neurology consult appreciated. Pending MRI to rule out CVA. - Place eye paste during night to protect corneal. (3) Leukocytosis Current Visit: No Status: Acute Assessment and Plan: Etiology is undetermined. No signs of infection. Likely reactive. (4) COPD (chronic obstructive pulmonary disease) Current Visit: Yes Status: Acute Assessment and Plan: No wheezing. No signs of exacerbation. Continue home medications. (5) Diabetes Current Visit: Yes Status: Acute Assessment and Plan: Continue sliding scale insulin coverage. - Time Spent with Patient Total time spent is greater than 50% in coordination of care (as documented) at patient's floor/unit and/or counseling patient: 30 minutes 25 - 35 minutes Plan of Care Discussed with: patient Internal Medicine: Result - Labs CBC & Chem 7: 12/04/18 06:55 12/04/18 06:55 Labs: Short CBC 12/03/18 12/04/18 Range/Units 17:52 06:55 WBC 11.6 H 12.4 H (4.3-11.1) K/mcL Hgb 12.4 11.4 L (11.5-15.4) g/dL Hct 40.1 35.6 (35.3-44.9) % Plt Count 258 245 (140-400) K/mcL Neutrophils # 8.8 (1.6-8.9) K/mcL BMP 12/03/18 12/04/18 17:52 06:55 Sodium 139 139 Potassium 3.8 3.3 L Chloride 102 99 Carbon Dioxide 28 31 H BUN 29 H 31 H Creatinine 1.38 H 1.10 Glucose 228 H 74 Calcium 9.0 8.9 Cardiac Enzymes 12/03/18 Range/Units 17:52 Troponin I < 0.03 (< 0.04) ng/mL - ABG Interpretation ABG results: PT/INR, D-dimer PT 11.9 Seconds (9.4-12.1) 12/03/18 17:52 - Impressions Impressions Head CTA 12/03/18 17:30 IMPRESSION: No CT evidence of an acute infarct. No flow limiting stenosis or branch occlusion detected within the head or neck. Left PCOM infundibulum versus aneurysm. D/ / Saulo Hemphill MD / Saulo Hemphill MD Interpreting Provider: Saulo Hemphill MD Neck CTA 12/03/18 17:32 IMPRESSION: No CT evidence of an acute infarct. No flow limiting stenosis or branch occlusion detected within the head or neck. Left PCOM infundibulum versus aneurysm. D/ / Saulo Hemphill MD / Saulo Hemphill MD Interpreting Provider: Saulo Hemphill MD Chest X-Ray 12/03/18 17:34 IMPRESSION: No evidence of acute process in the chest. D/ / Steven Cruz / Steven Cruz Interpreting Provider: Steven Cruz Echocardiogram 12/04/18 21:23 Impressions: LVEF 60-65%. Normal LV chamber size, wall thickness and function. Normal left ventricular diastolic function. Normal right ventricular structure and function. No evidence of PFO with agitated saline contrast. No evidence of pulmonary hypertension. No significant valvular dysfunction. Left Ventricular Wall Motion: Rest Echo Findings All wall segments showed normal motion. Findings: Study Quality * Technically adequate exam. ECG Findings * Normal sinus rhythm. Left Ventricle * LVEF 60-65%. * Normal LV chamber size, wall thickness and function. * Normal left ventricular diastolic function. Right Ventricle * Normal right ventricular structure and function. Left Atrium * Normal left atrial size. Right Atrium * Normal right atrial size. Interatrial Septum * No evidence of PFO with agitated saline contrast. Aortic Valve * Trileaflet aortic valve. * Normal aortic valve structure. * No aortic regurgitation. * No aortic stenosis. Mitral Valve * Normal mitral valve structure. * No mitral regurgitation. * No mitral stenosis. Tricuspid Valve * Trace tricuspid regurgitation. * No tricuspid stenosis. * Normal tricuspid valve structure. * No evidence of pulmonary hypertension. Pulmonic Valve * Pulmonic valve is not well visualized. Aorta * Normally sized aortic root. Pericardium * The pericardium appears normal. IVC * The IVC is dilated. Pulmonary Artery * Normal visualized portions of the main pulmonary artery. Consult Discharge Plan - Plan Referrals: Sarbjit Armenta MD [Primary Care Provider] - (3) Leukocytosis Qualifiers: Leukocytosis type: leukemoid reaction Qualified Code(s): D72.823 - Leukemoid reaction (4) COPD (chronic obstructive pulmonary disease) Qualifiers: COPD type: emphysema Emphysema type: unspecified Qualified Code(s): J43.9 - Emphysema, unspecified (5) Diabetes Qualifiers: Diabetes mellitus type: type 2 Diabetes mellitus intermission coordinator insulin use: with intermission coordinator use Diabetes mellitus complication status: without complication Qual ified Code(s): E11.9 - Type 2 diabetes mellitus without complications; Z79.4 - terminal clerk (current) use of insulin
[2018-12-04] MEDS ORDERED: Erythromycin OPTH Oint LEFT EYE SCH (21:00)
[2018-12-05] MEDS: *HR* Heparin 5,000 UNIT/ML VIAL SQ SCH ×2 (05:21→14:49)
[2018-12-05 06:24] LABS: Basophils # 0.1 K/mcL (0.0-0.2); Eosinophils # 0.3 K/mcL (0.0-0.6); Eosinophils % 3.4 %; Hematocrit 35.3 % (35.3-44.9); Hemoglobin 11.1 g/dL (11.5-15.4); Immature Granulocytes % 1.1 % (0-4); Lymphocytes # 1.9 K/mcL (0.6-4.6); Lymphocytes % 19.5 %; Mean Corpuscular HGB Conc 31.4 g/dL (31.6-35.5); Mean Corpuscular Hemoglobin 25.5 pg (28.0-33.3); Mean Corpuscular Volume 81.1 fL (83.0-100.0); Mean Platelet Volume 10.3 fL (9.4-12.4); Monocytes # 0.6 K/mcL (0.0-1.3); Monocytes % 6.4 %; Neutrophils # 6.6 K/mcL (1.6-8.9); Platelet Count 255 K/mcL (140-400); Red Blood Count 4.35 M/mcL (3.82-4.97); Segmented Neutrophils % 68.6 %
[2018-12-05 06:45] LABS: BUN/Creatinine Ratio 31 (6-26); Blood Urea Nitrogen 30 mg/dL (8-23); Calcium 9.1 mg/dL (8.6-10.3); Carbon Dioxide 28 mEq/L (23-29); Chloride 99 mEq/L (98-107); Glucose 156 mg/dL (70-105); Osmolality,Calculated 293 (280-300); Potassium 3.5 mEq/L (3.5-5.1); Sodium 137 mEq/L (136-145); eGFR For Non-African Americans 58 (> 60)
[2018-12-05] MEDS: Tiotropium 18 MCG inhalation IH SCH (07:33)
[2018-12-05 08:15] VITALS: BP 111/76
[2018-12-05] MEDS: Insulin LISPRO 300 UNITS/3 ML VIAL SQ SCH ×2 (08:24→12:05)
[2018-12-05] MEDS: Isosorbide MONOnitrate (24 HR) 60 MG TAB.ER.24H PO SCH (08:34)
[2018-12-05] MEDS: Furosemide 40 MG TABLET PO SCH (08:35)
[2018-12-05] MEDS: Gabapentin 400 MG CAPSULE PO SCH ×2 (08:35→14:49)
--- NOTE | 2018-12-05 09:06 | Neurology Progress Note ---
Date of Encounter: 12/05/18 Time of Encounter: 07:30 Assessment and Plan (1) Facial droop Current Visit: Yes Status: Acute The MRI scan of the brain was negative. Therefore week and can now safely say that the left facial weaknesses in fact secondary to simple Lawrence's palsy. She does however have some complaints of weakness of the left upper extremity. She had an MRI of the cervical spine completed in January 2018 which in my opinion does show moderates cervical spinal stenosis at the level of C4-C5. However therefore repeat an MRI of the cervical spine to further reconcile this problem. However regarding the Lawrence's palsy would simply recommend treatment with oral acyclovir and prednisone therapy per protocol. She however should follow up wit h Dr. Vargas after discharge from the hospital as she is established with him. (2) Arm weakness Current Visit: Yes Status: Acute Subjective Interval history: The chart was reviewed, the patient was seen and examined. No acute changes overnight. The left facial droop still remains. However MRI scan of the brain was negative. Patient tells me that she had been previously seen as an ou tpatient in our office by Dr. Vargas. She is complaining of balance difficulty and dizziness at that time. She had a CTA completed which suggested some cervical spinal stenosis. She did have an MRI scan completed back in January 2018 which did show moderate spinal stenosis at the C4-C5 level after I personally reviewed the studies. She still complains of some left upper extremity weakness. I will therefore obtain an MRI of the cervical spine. However with regard to the left facial weakness this is a simple Lawrence's palsy. Objective - Constitutional Vitals: Temp Pulse Resp BP Pulse Ox 97.8 F 66 19 111/76 93 12/05/18 08:10 12/05/18 08:10 12/05/18 08:10 12/05/18 08:10 12/05/18 08:10 Exam: Exam: Examination: General Examination: *CONSTITUTIONAL: Alert and oriented x3, no acute distress *GENERAL APPEARANCE OF PATIENT elderly obese female, appears stated age, no acute distress *EYES: pupils equal, round, reactive to light and accommodation, c onjunctiva clear *CARDIOVASCULAR RRR, S1, S2, no mumurs, rubs, or gallops, no peripheral edema, distal temperature normal, dorsalis pedis pulses normal. See vital signs Musculoskeletal: *GAIT AND STATION sitting upright at edge of bed unassisted without truncal ataxia *ASSESSMENT OF MUSCLE STRENGTH IN THE UPPER AND LOWER EXTREMITIES left deltoid, bicep, tricep, commissary clerk strength, hip flexors ,anterior tibialis, dorsoflexion of the foot 4/5; right deltoid, bicep, tricep, commissary clerk strength, hip flexors, anterior tibialis, dorsiflexion of the foot 5/5 *MUSCLE TONE IN THE UPPER AND LOWER EXTREMITIES normal. No abnormal movements, fasciculations or atrophy identified. Neurological: *ORIENTATION to person, situation, time and place *RECURRENT AND REMOTE MEMORY intact *ATTENTION AND CONCENTRATION are normal *LANGUAGE FUNCTION no significant aphasia. Having mild slurred speech *FUND OF KNOWLEDGE aware of current events, past history, vocabulary *MENTAL attention span and concentration normal. *CN II optic fundi were normal, no papilledema noted. *CN III,IV, PERRLA extraocular eye movements were full, no nystagmus. *CN V facial sensation is intact symmetrically *CN VII abnormal facial movement on left side with decreased innervation of left mouth, decreased nasolabial folds, and flattening of wrinkles of lt forehead *CN VIII shows no significant hearing loss on exam *CN IX,,X palate elevated symmetrically *CN XI normal strength in the sternocleidomastoid muscles, symmetrical shoulder shrugging. *CN XII leftward deviation of tongue, normal strength and movement however *SENSORY EXAMINATION diminished sensation of left face, left arm and left leg when compared to right *REFLEXES: deep tendon reflexes were normal and symmetrical , grade 1/4 diffusely, no pathological reflexes were noted. *CEREBELLAR TESTING normal finger to nose, heel/knee/vuong *PAIN LEVEL 2/10 headache, left-sided headache located to left jain without palpable tenderness Results - Laboratory Findings CBC and BMP: 12/05/18 04:56 12/05/18 04:56 Abnormal lab findings: Abnormal lab results Hgb 11.1 g/dL (11.5-15.4) L 12/05/18 04:56 MCV 81.1 fL (83.0-100.0) L 12/05/18 04:56 MCH 25.5 pg (28.0-33.3) L 12/05/18 04:56 MCHC 31.4 g/dL (31.6-35.5) L 12/05/18 04:56 RDW 16.0 % (11.5-14.5) H 12/05/18 04:56 BUN 30 mg/dL (8-23) H 12/05/18 04:56 Est GFR (Non-Af Amer) 58 (> 60) L 12/05/18 04:56 BUN/Creatinine Ratio 31 (6-26) H 12/05/18 04:56 Glucose 156 mg/dL (70-105) H 12/05/18 04:56 POC Glucose 191 mg/dL (70-99) H 12/04/18 19:47 Hemoglobin A1c 7.7 % (-5.6) H 12/04/18 06:55 Triglycerides 158 mg/dL (< 150) H 12/04/18 06:55 VLDL Cholesterol, Calc 32 mg/dL (< 31) H 12/04/18 06:55 HDL Cholesterol 36 mg/dL (40-59) L 12/04/18 06:55 Consult Discharge Plan - Plan Referrals: Sarbjit Armenta MD [Primary Care Provider] -
--- NOTE | 2018-12-05 09:31 | Neurology Progress Note ---
Date of Encounter: 12/05/18 Time of Encounter: 09:28 Assessment and Plan (1) Facial droop Current Visit: Yes Status: Acute With normal neuroimaging patient left facial droop and Ptosis is caused by [place] Palsy Acute neurovascular event ruled out. However, he has persistent Lt arm and leg weakness; consider acute C-spine pathology. Will order MRI of C-spine for further evaluation. May need outpatient EMG. Continue to rec prednisone and acyclovir tx F/u with Dr. Vargas at d/c in 2-3 weeks (2) Arm weakness Current Visit: Yes Status: Acute Subjective Principal diagnosis: bells palsy Interval history: Patient seen in f/u for eval of left Ptosis and left facial droop with concerns for acute CVA. Neuro imaging was unremarkable and ruled out an acute neurovascular event. 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 Seen at bedside today. No new complaints and she has been stable overnight. The ptosis of the left eye is im proving but still evident and she still has the facial droop. I explained that it will take time for her sx to improve. Her concerns today are in regards to her ongoing left arm and leg weakness as well as her cervical spinal stenosis. Objective - Constitutional Vitals: Temp Pulse Resp BP Pulse Ox 97.8 F 66 19 111/76 93 12/05/18 08:10 12/05/18 08:10 12/05/18 08:10 12/05/18 08:10 12/05/18 08:10 Exam: Examination: General Examination: *CONSTITUTIONAL: Alert and oriented x3, no acute distress *GENERAL APPEARANCE OF PATIENT elderly obese female, appears stated age, no acute distress *EYES: pupils equal, round, reactive to light and accommodation, conjunctiva clear *CARDIOVASCULAR RRR, S1, S2, no mumurs, rubs, or gallops, no peripheral edema, distal temperature normal, dorsalis pedis pulses normal. See vital signs Musculoskeletal: *GAIT AND STATION sitting upright at edge of bed unassisted without truncal ataxia *ASSESSMENT OF MUSCLE STRENGTH IN THE UPPER AND LOWER EXTREMITIES left deltoid, bicep, tricep, pharmacy resident strength, hip flexors ,anterior tibialis, dorsoflexion of the foot 4/5; right deltoid, bicep, tricep, pharmacy resident strength, hip flexors, anterior tibialis, dorsiflexion of the foot 5/5 *MUSCLE TONE IN THE UPPER AND LOWER EXTREMITIES normal. No abnormal movements, fasciculations or atrophy identified. Neurological: *ORIENTATION to person, situation, time and place *RECURRENT AND REMOTE MEMORY intact *ATTENTION AND CONCENTRATION are normal *LANGUAGE FUNCTION no significant aphasia. Having mild slurred speech *FUND OF KNOWLEDGE aware of current events, past history, vocabulary *MENTAL attention span and concentration normal. *CN II optic fundi were normal, no papilledema noted. *CN III,IV, PERRLA extraocular eye movements were full, no nystagmus. *CN V facial sensation is intact symmetrically *CN VII abnormal facial movement on left side with decreased innervation of left mouth, decreased nasolabial folds, and flattening of wrinkles of lt forehead *CN VIII shows no significant hearing loss on exam *CN IX,,X palate elevated symmetrically *CN XI normal strength in the sternocleidomastoid muscles, symmetrical shoulder shrugging. *CN XII leftward deviation of tongue, normal strength and movement however *SENSORY EXAMINATION diminished sensation of left face, left arm and left leg when compared to right *REFLEXES: deep tendon reflexes were normal and symmetrical , grade 1/4 diffusely, no pathological reflexes were noted. *CEREBELLAR TESTING normal finger to nose, heel/knee/vuong *PAIN LEVEL 2/10 headache, left-sided headache located to left confucianist without palpable tenderness Results - Laboratory Findings CBC and BMP: 12/05/18 04:56 12/05/18 04:56 Abnormal lab findings: Abnormal lab results Hgb 11.1 g/dL (11.5-15.4) L 12/05/18 04:56 MCV 81.1 fL (83.0-100.0) L 12/05/18 04:56 MCH 25.5 pg (28.0-33.3) L 12/05/18 04:56 MCHC 31.4 g/dL (31.6-35.5) L 12/05/18 04:56 RDW 16.0 % (11.5-14.5) H 12/05/18 04:56 BUN 30 mg/dL (8-23) H 12/05/18 04:56 Est GFR (Non-Af Amer) 58 (> 60) L 12/05/18 04:56 BUN/Creatinine Ratio 31 (6-26) H 12/05/18 04:56 Glucose 156 mg/dL (70-105) H 12/05/18 04:56 POC Glucose 191 mg/dL (70-99) H 12/04/18 19:47 Hemoglobin A1c 7.7 % (-5.6) H 12/04/18 06:55 Triglycerides 158 mg/dL (< 150) H 12/04/18 06:55 VLDL Cholesterol, Calc 32 mg/dL (< 31) H 12/04/18 06:55 HDL Cholesterol 36 mg/dL (40-59) L 12/04/18 06:55 Consult Discharge Plan - Plan Referrals: Sarbjit Armenta MD [Primary Care Provider] -
[2018-12-05] MEDS ORDERED: predniSONE 20 MG TABLET PO SCH (10:13)
[2018-12-05] MEDS: valACYclovir 500 MG TABLET PO SCH ×2 (12:05→14:48)
--- NOTE | 2018-12-05 14:58 | Discharge Summary ---
- NOTES TO OUTPATIENT PROVIDER Notes to Outpatient Provider: Follow-up with neurology Dr. Easley as outpatient. Date of Encounter: 12/05/18 Time of Encounter: 14:00 - Discharge Diagnosis (1) Arm weakness Priority: Secondary Status: Acute (2) Facial droop Priority: Primary Status: Acute (3) Leukocytosis Priority: Secondary Status: Acute Qualifiers: Leukocytosis type: leukemoid reaction Qualified Code(s): D72.823 - Leukemoid reaction (4) COPD (chronic obstructive pulmonary disease) Priority: Secondary Status: Acute Qualifiers: COPD type: emphysema Emphysema type: unspecified Qualified Code(s): J43.9 - Emphysema, unspecified (5) Diabetes Priority: Secondary Status: Acute Qualifiers: Diabetes mellitus type: type 2 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 Cassidy is a 63 year old female presents to ER for left facial drop. Patient also has left eye cannot close properly. Patient was considered Lawrence's palsy. Patient also has left hand weakness, which is not new, patient has similar symptoms for about 6 months. Neurology consult saw patient. Brain MRI has been done, negative for infarct. Patient also had C-spine MRI, which shows moderate stenosis. Patient was treated with steroid and antivirus for Lawrence's palsy. Patient does not want any ECF or home health service. She lives with boyfriend and have good family support. Will DC patient home, continue follow- up with PCP and neurology as outpatient. I have seen and examined the patient today. Left facial drop slightly improved. No other complaints. States her left hand weakness similar with before and had symptoms for about 6 months. Vitals are stable. Will DC patient home with by mouth prednisone and valacyclovir for 7 days, per neurology recommendation. Discharge discussed with: patient - Time Spent with Patient Total time spent providing and/or coordinating discharge services: 40 min Time spent: Greater than 30 minutes - Discharge Medications Prescriptions: New Artificial Tears SOLN [Akwa Tears] 1 drop LEFT EYE QID #1 bottle Erythromycin OPTH Oint 1 appl LEFT EYE HS #1 tube predniSONE [PredniSONE] 60 mg PO DAILY 6 Days #18 tablet valACYclovir [Valtrex] 1,000 mg PO TID 7 Days #40 tablet Continue Spironolactone [Aldactone] 100 mg PO DAILY Linagliptin [Tradjenta] 5 mg PO DAILY Insulin ASPART [NovoLOG] 40 unit SQ BID Albuterol Sulfate [Albuterol Inhaler] 2 puff IH Q6HR PRN PRN Reason: Shortness Of Breath Marion-3/Dha/Epa/Fish Oil [Fish Oil 1,000 mg Softgel] 1,000 mg PO DAILY Gabapentin [Neurontin] 800 mg PO TID Allopurinol [Zyloprim] 300 mg PO DAILY Albuterol Neb [Proventil Neb] 2.5 mg IH TID PRN PRN Reason: COPD Clopidogrel [Plavix] 75 mg PO DAILY Insulin Glargine,Hum.rec.anlog [Lantus Solostar] 75 units SQ BID Atenolol [Tenormin] 25 mg PO DAILY Atorvastatin [Lipitor] 40 mg PO HS Furosemide [Lasix] 40 mg PO DAILY Isosorbide MONOnitrate (24 HR) [Imdur] 60 mg PO DAILY Lidocaine Patch [Lidoderm 5% patch] 1 patch TD DAILY Losartan Potassium 100 mg PO DAILY metOLazone [Zaroxolyn] 5 mg PO DAILY Tiotropium [Spiriva] 18 mcg IH 0700 Home Medications: Linagliptin [Tradjenta] 5 mg PO DAILY 08/04/15 [History] Spironolactone [Aldactone] 100 mg PO DAILY 08/04/15 [History] Insulin ASPART [NovoLOG] 40 unit SQ BID 08/03/16 [History] Albuterol Neb [Proventil Neb] 2.5 mg IH TID PRN 04/06/17 [History] Albuterol Sulfate [Albuterol Inhaler] 2 puff IH Q6HR PRN 04/06/17 [History] Allopurinol [Zyloprim] 300 mg PO DAILY 04/06/17 [History] Gabapentin [Neurontin] 800 mg PO TID 04/06/17 [History] Marion-3/Dha/Epa/Fish Oil [Fish Oil 1,000 mg Softgel] 1,000 mg PO DAILY 04/06/17 [History] Clopidogrel [Plavix] 75 mg PO DAILY 12/03/18 [History] Insulin Glargine,Hum.rec.anlog [Lantus Solostar] 75 units SQ BID 12/03/18 [History] Atenolol [Tenormin] 25 mg PO DAILY 12/04/18 [History] Atorvastatin [Lipitor] 40 mg PO HS 12/04/18 [History] Furosemide [Lasix] 40 mg PO DAILY 12/04/18 [History] Isosorbide MONOnitrate (24 HR) [Imdur] 60 mg PO DAILY 12/04/18 [History] Lidocaine Patch [Lidoderm 5% patch] 1 patch TD DAILY 12/04/18 [History] Losartan Potassium 100 mg PO DAILY 12/04/18 [History] Tiotropium [Spiriva] 18 mcg IH 0700 12/04/18 [History] metOLazone [Zaroxolyn] 5 mg PO DAILY 12/04/18 [History] Artificial Tears SOLN [Akwa Tears] 1 drop LEFT EYE QID #1 bottle 12/05/18 [Rx] Erythromycin OPTH Oint 1 appl LEFT EYE HS #1 tube 12/05/18 [Rx] predniSONE [PredniSONE] 60 mg PO DAILY 6 Days #18 tablet 12/05/18 [Rx] valACYclovir [Valtrex] 1,000 mg PO TID 7 Days #40 tablet 12/05/18 [Rx] Allergies/Adverse Reactions: Allergy/AdvReac Type Severity Reaction Status Date / Time aspirin Allergy Swelling Verified 12/04/18 17:39 of Lip/Tongue/Throat ibuprofen Allergy Swelling Verified 12/04/18 17:39 of Lip/Tongue/Throat naproxen [From Naprosyn] Allergy Swelling Verified 12/04/18 17:39 of Lip/Tongue/Throat Date of admission: 12/03/18 21:32 Primary care physician: Sarbjit Armenta MD Consults: 12/04/18 00:20 Consult to Neurology [CONS] Routine Consulting Provider: Neurology [facility] Reason for Consult: 63 year old woman who came with left facial/body weakness Call Completed: No 12/04/18 15:43 Consult to Occupational Therapy [CONS] Routine Comment: Evaluate, develop and implement POC Reason for Consult: Weakness Does patient have active BEDREST order?: No Is patient medically & hemodynamically stable?: Yes Consult to Physical Therapy [CONS] Routine Comment: Evaluate, develop and implement POC Reason for Consult: Weakness Does patient have active BEDREST order?: No Is patient medically & hemodynamically stable?: Yes Discharging clinician: Bren Cr Anticipated date of discharge: 12/05/18 - Constitutional Vitals: Temp Pulse Resp BP Pulse Ox 97.8 F 66 19 111/76 93 12/05/18 08:10 12/05/18 08:10 12/05/18 08:10 12/05/18 08:10 12/05/18 08:10 Exam: Pt is AAO x 3, in NAD HEENT: NC/AT, PERRL Neck: Supple, no JVD, no LAD Lungs: CTA b/l Heart: S1S2, RRR Abd: Soft, nontender, BS present Ext: ROM wnl, no pedal edema Neuro: Left facial drop, cannot close left eyes properly, left hand motor 4/5. - Patient Status Disposition: Home, Self-Care Condition: Good Functional capacity at discharge: uses cane/walker Overall status at discharge: patient is progressing back to baseline - Discharge Instructions Follow Up With: Sarbjit Armenta MD [Primary Care Provider] - - Diet and Activity Activity: increase activity as tolerated Diet: diabetic diet, low fat, low cholesterol, low salt diet
[2018-12-05] MEDS ORDERED: Artificial Tears SOLN 15 ML BOTTLE LEFT EYE SCH (17:00)
== END 2018-12-05 17:15 | disposition home or self-care (01) ==
LOC: EMEROOARM 16:47 → 2NENU 16:47
PROVIDERS: ADMIT Internal Medicine; ATTEND Internal Medicine